=== PATIENT | male | born 1980 ===

== ENCOUNTER 2024-08-16 11:36 | Emergency (ER) | payer OTHER ==
[~2024-08-16] VITALS: Ht 170.2 cm; Wt 63.5 kg
== END 2024-08-16 12:23 | disposition left against medical advice (07) ==
LOC: ER 11:36
DX: T63.301A Toxic effect of unspecified spider venom, accidental (unintentional), initial encounter (principal); Z53.29 Procedure and treatment not carried out because of patient's decision for other reasons
CPT/HCPCS: 99281

== ENCOUNTER → 2024-09-02 | Emergency (ER) | payer OTHER ==
[~2024-09-02] VITALS: Ht 170.2 cm; Wt 65.8 kg
== END ==
LOC: ER 12:43
DX: S06.9X9A Unspecified intracranial injury with loss of consciousness of unspecified duration, initial encounter (principal); Z53.29 Procedure and treatment not carried out because of patient's decision for other reasons
CPT/HCPCS: 70450; 72125

== ENCOUNTER → 2025-01-05 | Outpatient (CLI) | payer OTHER | LOC: LAB 17:50 → LAB SHORT 17:50 | DX: N50.89 Other specified disorders of the male genital organs (principal) | CPT/HCPCS: 87070; 87147; 87205 ==